=== PATIENT | female | born 1955 | race Caucasian/White ===

== ENCOUNTER → 2017-01-31 | Outpatient (CLI) | payer BC ==
[~2017-01-31] MED LIST: ACET-1311 PO; ASPI81TA28 PO; CLON0.5T3 PO; CZR50 PO; GARL10007 PO; ISOS120T5 PO; METO50TA16 PO; NTRSLP4 SL; OMEG10007 PO; PLV75 PO; RANI150T2 PO; RANO1000 PO; REGADENOSON 0.4 MG/5 ML SYR ONE; SENNTAB23 PO
--- NOTE | 2017-01-31 22:34 | MYOCARDIAL PERFUSION SCAN ---
ONE-DAY NUCLEAR MEDICINE TECHNETIUM-99M CARDIOLITE MYOCARDIAL PERFUSION SCAN. INDICATION: History of coronary artery disease, status post CABG with recent onset of exertional chest pain, shortness of breath. EKG: Baseline EKG shows sinus bradycardia with a ventricular rate of 54. No significant ST abnormalities. EXERCISE EKG: Patient exercised for 6 minutes and 38 seconds, achieving 8.9 METS and 82% of maximum predicted heart rate. She had no exercise-induced chest pain and had a normal hemodynamic response to exercise. There were no significant exercise-induced ST changes. There were frequent PVCs during recovery with occasional couplets and occasional bigeminy. TECHNIQUE: For the stress portion of the study, 33.0 mCi of technetium-99m Cardiolite IV was injected at 9:10 a.m. on 01/31/2017. Fifteen minutes following the injection, imaging of the heart was performed in multiple projections. For the rest portion of the study, 10.6 mCi of technetium-99m Cardiolite was injected IV at 7:30 a.m. One hour following the injection, imaging of the heart was performed in the same projections. FINDINGS: Raw images were reviewed in detail. There was no significant motion artifact. There was mild breast attenuation as well as mild diaphragmatic attenuation. There was mild gut uptake impacting the inferior imaging border of the heart, on stress more so than rest. There was no significant pathologic extracardiac uptake. The short axis, vertical long axis and horizontal long axis images were reviewed in detail. Myocardial perfusion was normal, both with stress and with rest, without any significant perfusion defects. LV size was normal with an end-diastolic volume of 82 mL. LV function was normal with an EF of 67% and no regional wall motion abnormalities. IMPRESSION: 1. Normal myocardial perfusion study, negative for exercise-induced ischemia. 2. Normal LV size and function with a calculated EF of 67%. 3. Above-average functional capacity, exercised 6 minutes and 38 seconds, achieving 8.9 mets. Negative exercise EKG for ischemia. No exercise-induced chest pain. Normal hemodynamic response to exercise.
== END | disposition home or self-care (01) ==
LOC: C.NUCL 07:07
PROVIDERS: ATTEND Internal Medicine Interventional Cardiology
DX: I25.10 Atherosclerotic heart disease of native coronary artery without angina pectoris (principal); R06.09 Other forms of dyspnea